=== PATIENT | male | born 1945 | race Hispanic/Latino ===

== ENCOUNTER 2022-05-18 15:44 | Emergency (ER) | payer OTHER ==
[~2022-05-18] VITALS: Ht 180.3 cm; Wt 99.8 kg
[~2022-05-18 15:44] MED LIST: ASPI-1197 PO; ATOR20TA PO; HYDR25TA PO; LISI40TA9 PO
[2022-05-18 16:40] LABS: APPEARANCE,URINE CLEAR (CLEAR); BILIRUBIN,URINE NEGATIVE (NEGATIVE); COLOR,URINE LIGHT-YELLOW (YELLOW); GLUCOSE, URINE (UA) 50 mg/dL (NEGATIVE); KETONES,URINE NEGATIVE (NEGATIVE); LEUKOCYTE ESTERASE ,URINE 250 Leu/uL (NEGATIVE); NITRATE,URINE NEGATIVE (NEGATIVE); OCCULT BLOOD,URINE SMALL (NEGATIVE); PH,URINE 5.5 (5.0-8.0); PROTEIN,URINE NEGATIVE (NEGATIVE)
[2022-05-18 16:51] LABS: BACTERIA,URINE MOD /HPF (None Seen); MUCUS,URINE RARE LPF (None Seen); SQUAMOUS EPITHELIAL CELL,UR RARE /HPF (0-2); WBC,URINE 26-50 /HPF (0-1)
[2022-05-18 16:54] VITALS: BP 130/85
[2022-05-18] MEDS ORDERED: TAMS-1 PO (17:30)
[2022-05-18] MEDS ORDERED: CEPH500B PO (17:30)
== END 2022-05-18 17:39 | disposition home or self-care (01) ==
LOC: EDH 15:44
DX: N39.0 Urinary tract infection, site not specified (principal); E11.9 Type 2 diabetes mellitus without complications; I10 Essential (primary) hypertension; Z79.899 Other long term (current) drug therapy
CPT/HCPCS: 81001; 87088